=== PATIENT | male | born 1950 | race Caucasian/White ===

== ENCOUNTER 2020-08-17 17:58 | Inpatient (IN) | payer OTHER, MEDICARE ==
[~2020-08-17] VITALS: Ht 177.8 cm; Wt 78.7 kg
[2020-08-17] MEDS ORDERED: DOCU100 PO (18:41)
[2020-08-17] MEDS ORDERED: ACET500 PO (18:41)
[2020-08-17] MEDS ORDERED: LIDO700A20 TOP (18:43)
[2020-08-17 19:46] LABS: BASOPHILS ABSOLUTE AUTO 0.03 K/mm3 (0.00-0.23); BASOPHILS PERCENT AUTO 0 % (0-2); EOSINOPHILS ABSOLUTE AUTO 0.12 K/mm3 (0.00-0.68); EOSINOPHILS PERCENT AUTO 1 % (0-6); Hematocrit 35.8 % (37.0-53.0); Hemoglobin 12.4 g/dL (13.5-17.5); IMMATURE GRAN ABSOLUTE AUTO 0.11 K/mm3 (0.00-0.10); IMMATURE GRAN PERCENT AUTO 1 % (0-1); LYMPHOCYTES ABSOLUTE AUTO 1.35 K/mm3 (0.84-5.20); LYMPHOCYTES PERCENT AUTO 8 % (21-46); MONOCYTES ABSOLUTE AUTO 1.51 K/mm3 (0.16-1.47); MONOCYTES PERCENT AUTO 9 % (4-13); Mean Corpuscular HGB Conc 34.6 g/dL (31.5-36.5); Mean Corpuscular Volume 90 fL (80-100); Mean Platelet Volume 9.2 fL (9.1-12.4); NEUTROPHILS ABSOLUTE AUTO 13.88 K/mm3 (1.96-9.15); NEUTROPHILS PERCENT AUTO 82 % (41-73); Platelet Count 335 K/mm3 (150-400); RDW Coefficient Variation 13.2 % (11.7-14.2); RDW Standard Deviation 43.8 fL (35.1-46.3)
[2020-08-17 20:10] LABS: Alanine Aminotransfer (ALT/SGP 17 U/L (12-78); Albumin, Blood 2.6 g/dL (3.4-5.0); Albumin/Globulin Ratio 0.6 (0.8-1.8); Alk Phos 96 U/L (50-136); Anion Gap 3 mmol/L (6-16); Aspartate Aminotrans (AST/SGOT 8 U/L (12-37); Bilirubin, Total 0.3 mg/dL (0.1-1.0); Blood Urea Nitrogen 13 mg/dL (8-24); Bun/Creatinine Ratio 14.2 (12.0-20.0); CO2, Blood 32 mmol/L (21-32); Calcium, Blood 8.7 mg/dL (8.5-10.1); Chloride, Blood 103 mmol/L (98-108); Creatinine, Blood 0.92 mg/dL (0.60-1.20); Globulin, Blood 4.3 g/dL (2.2-4.0); Glomerular Filtration Rate >60 (60-); Glucose, Blood 116 mg/dL (70-99); Potassium, Blood 3.5 mmol/L (3.5-5.5); Sodium, Blood 138 mmol/L (136-145); Total Protein, Blood 6.9 g/dL (6.4-8.2)
[2020-08-17 20:19] LABS: C-REACTIVE PROTEIN, EXT RANGE >19.000 mg/dL (0.000-0.300)
[2020-08-18 04:47] LABS: BASOPHILS ABSOLUTE AUTO 0.03 K/mm3 (0.00-0.23); BASOPHILS PERCENT AUTO 0 % (0-2); EOSINOPHILS ABSOLUTE AUTO 0.08 K/mm3 (0.00-0.68); EOSINOPHILS PERCENT AUTO 1 % (0-6); Hematocrit 34.3 % (37.0-53.0); Hemoglobin 11.7 g/dL (13.5-17.5); IMMATURE GRAN ABSOLUTE AUTO 0.11 K/mm3 (0.00-0.10); IMMATURE GRAN PERCENT AUTO 1 % (0-1); LYMPHOCYTES ABSOLUTE AUTO 1.43 K/mm3 (0.84-5.20); LYMPHOCYTES PERCENT AUTO 9 % (21-46); MONOCYTES ABSOLUTE AUTO 1.53 K/mm3 (0.16-1.47); MONOCYTES PERCENT AUTO 10 % (4-13); Mean Corpuscular HGB 30.2 pg (26.0-34.0); Mean Corpuscular HGB Conc 34.1 g/dL (31.5-36.5); Mean Corpuscular Volume 89 fL (80-100); Mean Platelet Volume 9.2 fL (9.1-12.4); NEUTROPHILS ABSOLUTE AUTO 12.97 K/mm3 (1.96-9.15); NEUTROPHILS PERCENT AUTO 80 % (41-73); Platelet Count 332 K/mm3 (150-400); RDW Coefficient Variation 13.3 % (11.7-14.2); RDW Standard Deviation 43.3 fL (35.1-46.3); Red Blood Cell Count 3.87 M/mm3 (4.30-5.90); White Blood Cell Count 16.15 K/mm3 (4.00-11.30)
[2020-08-18 05:06] LABS: Alanine Aminotransfer (ALT/SGP 18 U/L (12-78); Albumin, Blood 2.3 g/dL (3.4-5.0); Albumin/Globulin Ratio 0.6 (0.8-1.8); Alk Phos 91 U/L (50-136); Anion Gap 5 mmol/L (6-16); Aspartate Aminotrans (AST/SGOT 9 U/L (12-37); Bilirubin, Total 0.3 mg/dL (0.1-1.0); Blood Urea Nitrogen 10 mg/dL (8-24); Bun/Creatinine Ratio 13.4 (12.0-20.0); CO2, Blood 27 mmol/L (21-32); Calcium, Blood 7.9 mg/dL (8.5-10.1); Chloride, Blood 103 mmol/L (98-108); Creatinine, Blood 0.75 mg/dL (0.60-1.20); Globulin, Blood 3.9 g/dL (2.2-4.0); Glomerular Filtration Rate >60 (60-); Glucose, Blood 107 mg/dL (70-99); Potassium, Blood 3.3 mmol/L (3.5-5.5); Sodium, Blood 135 mmol/L (136-145); Total Protein, Blood 6.2 g/dL (6.4-8.2)
--- NOTE | 2020-08-18 06:26 | NUR ---
SHIFT SUMMARY RECIEVED REPORT FROM KATELYN VAZQUEZ, ED @ 2023. ARRIVED TO MEDICAL FLOOR VIA [facility] AT 2042. NO TRANSFER ASSISTANCE NEEDED FROM GURNEY TO BED. STATES UTILIZES WALKING STICK/CANE AT BASELINE FOR AMBULATION AND INABILITY TO DORSIFLEX R FOOT R/T RECONSTRUCTIVE SX. ORIENTED TO ROOM AND CALL SYSTEM. A/O, ABLE TO MAKE NEEDS KNOWN. COOPERATIVE WITH CARE. ANSWERS QUESTIONS APPROPRIATELY. SOME GARBLED SPEECH R/T NO DENTURES AND POTENTIALLY TALKING FAST. RECIEVING IV HYDRATION AND ABX. MEDICATED PER EMAR FOR PAIN TO RLE. RATES PAIN 6-9/10. VSS. APPEARED TO REST MINIMALLY. NO OTHER ACUTE CHANGES NOTED OVERNIGHT. BED REMAINS IN LOWEST POSITION. CALL LIGHT AND BELONGINGS WITHIN REACH. CONTINUE WITH CURRENT PLAN OF CARE. REPORT TO CARLOS VAZQUEZ.
--- NOTE | 2020-08-18 15:48 | NUR ---
PER CHANGE FENTANYL TO 0.5 MG DILAUDID IV
--- NOTE | 2020-08-18 16:43 | NUR ---
ALERT. ORIENTED. USES URINAL IN BED. IV PATENT. TO DO I&D TOMORROW WITH PATIENT NPO AFTER MIDNITE. REDRESSED RT KNEE AND WILL LEAVE IN PLACE FOR SURGERY. UNLABORED RESPIRATIONS. WCTM
[2020-08-18 19:40] LABS: SARS-Cov-2 (COVID-19) PCR, MMC NEGATIVE (NEGATIVE)
--- NOTE | 2020-08-19 04:42 | NUR ---
SUMMARY PT HAS BEEN NPO SINCE 0000HRS. PT PAIN MANAGED WELL PER EMAR. PT HAD NO NEW COMPLAINTS. CALL LIGHT IN REACH.
[2020-08-19 04:47] LABS: BASOPHILS ABSOLUTE AUTO 0.04 K/mm3 (0.00-0.23); BASOPHILS PERCENT AUTO 0 % (0-2); EOSINOPHILS ABSOLUTE AUTO 0.06 K/mm3 (0.00-0.68); EOSINOPHILS PERCENT AUTO 0 % (0-6); Hemoglobin 11.8 g/dL (13.5-17.5); IMMATURE GRAN ABSOLUTE AUTO 0.21 K/mm3 (0.00-0.10); IMMATURE GRAN PERCENT AUTO 2 % (0-1); LYMPHOCYTES ABSOLUTE AUTO 1.55 K/mm3 (0.84-5.20); LYMPHOCYTES PERCENT AUTO 11 % (21-46); MONOCYTES ABSOLUTE AUTO 1.39 K/mm3 (0.16-1.47); MONOCYTES PERCENT AUTO 10 % (4-13); Mean Corpuscular HGB 29.7 pg (26.0-34.0); Mean Corpuscular HGB Conc 33.7 g/dL (31.5-36.5); Mean Corpuscular Volume 88 fL (80-100); Mean Platelet Volume 9.1 fL (9.1-12.4); NEUTROPHILS ABSOLUTE AUTO 10.68 K/mm3 (1.96-9.15); NEUTROPHILS PERCENT AUTO 77 % (41-73); Platelet Count 403 K/mm3 (150-400); RDW Coefficient Variation 13.3 % (11.7-14.2); RDW Standard Deviation 43.6 fL (35.1-46.3); Red Blood Cell Count 3.97 M/mm3 (4.30-5.90); White Blood Cell Count 13.93 K/mm3 (4.00-11.30)
[2020-08-19 05:07] LABS: Anion Gap 4 mmol/L (6-16); Blood Urea Nitrogen 12 mg/dL (8-24); Bun/Creatinine Ratio 12.9 (12.0-20.0); CO2, Blood 29 mmol/L (21-32); Calcium, Blood 8.4 mg/dL (8.5-10.1); Chloride, Blood 100 mmol/L (98-108); Creatinine, Blood 0.93 mg/dL (0.60-1.20); Glomerular Filtration Rate >60 (60-); Glucose, Blood 104 mg/dL (70-99); Sodium, Blood 133 mmol/L (136-145)
[2020-08-19 05:09] LABS: Vancomycin, Trough 7.1 ug/mL (5.0-10.0)
--- NOTE | 2020-08-19 10:46 | NUR ---
PT TO DAY SURGERY FOR I&D.
--- NOTE | 2020-08-19 11:00 | NUR ---
History, Chart, Medications and Allergies reviewed before start of procedure.Lungs clear T/O to Auscultation. Patient confirms NPO status and agrees with scheduled surgery. ALL BELONINGS LEFT IN ROOM 309. REPORT FROM NOHEMI VAZQUEZ.
--- NOTE | 2020-08-19 13:32 | NUR ---
08/19/20 1332 Lilo Subramanian PT ON SCHEDULED ANTIBIOTICS AND RECIEVED PRIOR TO ARRIVAL TO OR. CONFIRMED WITH DR VALENTINE.
--- NOTE | 2020-08-19 14:43 | NUR ---
PT BACK FROM DAY SURGERY FOR I&D. PT ABLE TO SLIDE INTO BED INDEP. 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 PT REQUESTING TO EAT. DRESSING IN PLACE, C/D/I. NO BLEEDING NOTED.
--- NOTE | 2020-08-19 16:33 | NUR ---
SHIFT SUMMARY- PT A/OX4. UP WITH 1 ASSIST. I&D OF RIGHT KNEE TODAY, DRESSING C/D/I. WEIGHT BEARING TOLERATED. PAIN TOLERABLE PER PT, INCREASES WITH MOVEMENT. LS CLEAR, ON RA. 1+ RLE EDEMA NOTED. PHYSICAL THERAPY EVALED TODAY AND CLEARED PT TO BE INDEP POST SURGERY. 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 NO OTHER ACUTE CHANGES THIS SHIFT.
--- NOTE | 2020-08-20 03:45 | NUR ---
SUMMARY PT HAD NO ISUES NOTED. PT DISCOMFORT TX PER EMAR. PT HAS KEPT HIS LEG ELEVATED. PT SLEPT WELL T/O SHIFT. PT CURRENTLY SLEEPING COMFORTABLY. CALL LIGHT IN REACH.
[2020-08-20 05:34] LABS: Vancomycin, Trough 15.1 ug/mL (5.0-10.0)
--- NOTE | 2020-08-20 16:35 | NUR ---
Shift Summary A/Ox4, pleasant and cooperative with care. Up independently in room and to bathroom. Medicated for R knee pain per EMAR. Patient to be NPO after midnight for possible I&D of R knee tomorrow with Dr. Leroy, patient is aware. Appetite is good. Worked with OT, tolerated well. Dressing from thigh to lower R leg intact, not saturated, no dressing change required. No acute changes, WCTM.
--- NOTE | 2020-08-21 03:58 | NUR ---
SHIFT SUMMARY PT HAS RESTED MOST OF THE NIGHT, MEDICATED FOR PAIN PRN. IV ANTIBIOTICS CONTINUED ORDERED. PLAN IS FOR ANOTHER I&D TODAY ON AFFECTED EXTREMITY. PT HAS BEEN NPO SINCE MIDNIGHT. NO ACUTE CHANGES OVERNIGHT. BED IN LOWEST POSITION, CALL LIGHT WITHIN REACH.
[2020-08-21 05:22] LABS: Vancomycin, Trough 15.2 ug/mL (5.0-10.0)
--- NOTE | 2020-08-21 13:24 | NUR ---
PT TRANSPORTED FOR I&D
--- NOTE | 2020-08-21 13:42 | NUR ---
PT TO SDS FROM ROOM 309. REPORTS NPO. VOIDS PRIOR TO SDS. History, Chart, Medications and Allergies reviewed before start of procedure. Lungs clear T/O to Auscultation.
--- NOTE | 2020-08-21 15:18 | NUR ---
08/21/20 1518 Florian Mitchell PATIENT ON SCHEDULED ANTIBIOTICS
--- NOTE | 2020-08-21 16:29 | NUR ---
PT NOW IN THE ROOM AFTER I&D. RECEIVED REPORT FROM CONSUELO VAZQUEZ; POST VITALS. PT AWAKE AND PAIN TOLERABLE
--- NOTE | 2020-08-21 18:14 | NUR ---
SHIFT SUMMARY PT ALERT AND ORIENTED; USES CALL LIGHT' PT HAD SECOND I&D TODAY; WOUND VAC IN PLACED AND DRESSING INTACT . SENSATION INTACT AND CAP REFILL WNL. PT MEDICATED FOR PAIN PER EMAR; RECEIVING ABX; SEE PROGRESS NOTE FOR DC PLAN. POSTOP VS DONE. BED IS IN THE LOWEST POSITION AND CALL LIGHT WITHIN REACH
[2020-08-22 04:45] LABS: BASOPHILS ABSOLUTE AUTO 0.03 K/mm3 (0.00-0.23); BASOPHILS PERCENT AUTO 0 % (0-2); EOSINOPHILS ABSOLUTE AUTO 0.01 K/mm3 (0.00-0.68); EOSINOPHILS PERCENT AUTO 0 % (0-6); Hematocrit 34.1 % (37.0-53.0); Hemoglobin 11.4 g/dL (13.5-17.5); IMMATURE GRAN ABSOLUTE AUTO 0.53 K/mm3 (0.00-0.10); IMMATURE GRAN PERCENT AUTO 4 % (0-1); LYMPHOCYTES ABSOLUTE AUTO 1.24 K/mm3 (0.84-5.20); LYMPHOCYTES PERCENT AUTO 8 % (21-46); MONOCYTES ABSOLUTE AUTO 0.75 K/mm3 (0.16-1.47); MONOCYTES PERCENT AUTO 5 % (4-13); Mean Corpuscular HGB 29.8 pg (26.0-34.0); Mean Corpuscular HGB Conc 33.4 g/dL (31.5-36.5); Mean Corpuscular Volume 89 fL (80-100); Mean Platelet Volume 8.8 fL (9.1-12.4); NEUTROPHILS ABSOLUTE AUTO 12.27 K/mm3 (1.96-9.15); NEUTROPHILS PERCENT AUTO 83 % (41-73); Platelet Count 476 K/mm3 (150-400); RDW Coefficient Variation 13.2 % (11.7-14.2); RDW Standard Deviation 42.9 fL (35.1-46.3); Red Blood Cell Count 3.83 M/mm3 (4.30-5.90); White Blood Cell Count 14.83 K/mm3 (4.00-11.30)
[2020-08-22 05:04] LABS: Anion Gap 3 mmol/L (6-16); Blood Urea Nitrogen 21 mg/dL (8-24); Bun/Creatinine Ratio 23.3 (12.0-20.0); CO2, Blood 29 mmol/L (21-32); Calcium, Blood 8.1 mg/dL (8.5-10.1); Chloride, Blood 102 mmol/L (98-108); Glomerular Filtration Rate >60 (60-); Glucose, Blood 132 mg/dL (70-99); Magnesium, Blood 2.3 mg/dL (1.6-2.4); Potassium, Blood 4.5 mmol/L (3.5-5.5); Sodium, Blood 134 mmol/L (136-145)
--- NOTE | 2020-08-22 05:54 | NUR ---
SHIFT SUMMARY PATIENT ALERT AND ORIENTED. WAS MEDICATED PER EMAR FOR PAIN. NO COMPLAINTS OF SHORTNESS OF BREATH. NO ACUTE ISSUES NOTED OVERNIGHT. IV PATENT AND INFUSING. BED IN LOWEST POSITION WITH WHEELS LOCKED. CALL LIGHT WITHIN REACH. REPORT GIVEN TO ONCOMING RN.
--- NOTE | 2020-08-22 17:34 | NUR ---
SHIFT SUMMARY. A&OX4, PLEASANT AND COOPERATIVE WITH CARE. WOUND VAC TO R KNEE PATENT, DR. ERNANDEZ WROTE NURSE NOTIFY ORDER STATING PT JULY D/C MONDAY IF MEDICALLY STABLE AND AFTER WOUND VAC DRESSING CHANGED BY RN, WILL REQUIRE OUTPATIENT WOUND VAC CHANGES FOR 30 DAYS. PAIN TO R KNEE MANAGED WELL WITH PO NORCO. IV ABX D/C'D, PO ABX STARTED. NO N/V, SOB. NO OTHER CHANGES OR CONCERNS.
--- NOTE | 2020-08-23 05:42 | NUR ---
SHIFT SUMMARY PATIENT ALERT AND ORIENTED. WAS MEDICATED ONCE PER EMAR FOR PAIN. NO COMPLAINTS OF SHORTNESS OF BREATH. PATIENT SLEPT WELL OVERNIGHT AND HAD MINIMAL NEEDS. NO ACUTE ISSUES NOTED. IV PATENT AND INFUSING. BED IN LOWEST POSITION WITH WHEELS LOCKED. CALL LIGHT WITHIN REACH. REPORT GIVEN TO ONCOMING RN.
--- NOTE | 2020-08-23 17:56 | NUR ---
SHIFT SUMMARY. A&OX4, SBA TO BATHROOM, USES URINAL AT BEDSIDE. PT REPORTED PAIN WAS MUCH MORE TOLERABLE TODAY COMPARED TO YESTERDAY UNTIL THIS AFTERNOON WERE PT REQUIRED A DOSE OF NORCO. NO SOB, N/V. GOOD INTAKE. PT HAD BM THIS AFTERNOON AFTER MOM GIVEN THIS AM. WOUND VAC DRESSING C/D/I. NO NEW CHANGES OR CONCERNS.
--- NOTE | 2020-08-24 17:48 | NUR ---
SHIFT SUMMARY PT AxOx4. PLEASANT AND COOPERATIVE WITH CARE. PT WAS EXPECTED TO DC HOME WITH OUTPATIENT WOUND CLINIC REFERRAL TODAY, BUT WAS UNABLE TO GET HOME WOUND VAC FROM [place]. CURRENT PLAN IS TO DC HOME TOMORROW AFTER [facility] DELIV[facility] TO PATIENT IN THE HOSPITAL. DC ORDERS IN. WOUND VAC DRESSING WILL BE CHANGED TOMORROW PRIOR TO DC. DR MOFFETT CLEARED PT FOR DC. PT INDEPENDENT IN THE ROOM, CONTINENT AND REPORTED PAIN x1 TODAY. MEDICATED PER EMAR. FLUIDS DC'D. VITALS REVIEWED. PT DENIES ANY NEEDS AT THIS TIME. CALL LIGHT IN REACH.
--- NOTE | 2020-08-25 04:48 | NUR ---
SUMMARY: PT A/OX4, INDEPENDENT IN ROOM AND CALLS APPROPRIATELY FOR ASSIST. WOUND VAC REMAINS INTACT TO RLE AND WILL NEED CHANGED W/HOME SUPPLIES PRIOR TO D/C. PLAN IS TO GO HOME TODAY W/WOUND CLINIC F/U AND TO CONTINUE ORAL ABX UPON D/C. KAREYCO RECIEVED PO PRN FOR TOLERABLE RELIEF OF R.LEG PAIN. NO ACUTE CHANGES, VSS/AFEBRILE. WCTM AND REPORT TO DAY RN.
[2020-08-25] MEDS ORDERED: AMOX-CLAV 875-1 EAC1 PO (10:22)
[2020-08-25] MEDS ORDERED: CATAPRES0.1 MG PO (10:24)
[2020-08-25] MEDS ORDERED: HYDR1TAB94 PO (10:25)
[2020-08-25] MEDS ORDERED: SULTRIDS PO (10:25)
[2020-08-25] MEDS ORDERED: VISBIOME 112.51 EACH PO (10:26)
--- NOTE | 2020-08-25 15:55 | NUR ---
PT DISCHARGED WITH INSTRUCTIONS. WOUND VAC DRESSING CHANGED AND CONNECTED TO NEW WOUND VAC FOR PT TO BE DC'D WITH. AWARE TO F/U WITH PCP AND [facility] AND WOUND CLINIC FOR DRESSING CHANGES. [facility] TO [facility] AND HARD SCRIPT FOR NORCO GIVEN TO PT. W/C ESCORT OUT TO PRIVATE CAR TO DRIVE PT HOME. PT INDEPENDANT ON FEET AND STABLE. MEDICATED FOR PAIN BEFORE DC.
== END 2020-08-25 15:26 | disposition home or self-care (01) | DRG 464 ==
LOC: ER 17:58 → MEDS 19:10 → ENPENDDIS 08-24 16:02 → MEDS 08-25 15:26
PROVIDERS: Emergency Medicine; Internal Medicine; Orthopaedic Surgery; ADMIT Internal Medicine
PROC: 0JBN0ZZ Excision of Right Lower Leg Subcutaneous Tissue and Fascia, Open Approach (ICD-10-PCS; 2020-08-19)
PROC: 0MBN0ZZ Excision of Right Knee Bursa and Ligament, Open Approach (ICD-10-PCS; principal; 2020-08-21 13:45)
DX: M71.161 Other infective bursitis, right knee (principal); L03.115 Cellulitis of right lower limb; E87.1 Hypo-osmolality and hyponatremia; F15.10 Other stimulant abuse, uncomplicated; F14.10 Cocaine abuse, uncomplicated; K21.9 Gastro-esophageal reflux disease without esophagitis; I10 Essential (primary) hypertension; F39 Unspecified mood [affective] disorder; Z98.890 Other specified postprocedural states; E87.6 Hypokalemia; F43.12 Post-traumatic stress disorder, chronic; B95.61 Methicillin susceptible Staphylococcus aureus infection as the cause of diseases classified elsewhere; F17.210 Nicotine dependence, cigarettes, uncomplicated
CPT/HCPCS: 36415; 73562-RT; 80048; 80053; 80202; 83735; 85025; 85651; 86140; 87070; 87075; 87077; 87147; 87186; 87205; 94760; 96360; 97110; 97161; 97165; 97535; 99285-25; A9270; J0295; J0690; J1100; J1170; J1885; J2405; J2704; J3010; J3370; J7030; J7050; J7120; U0004